=== PATIENT | male | born 1990 | race Caucasian/White ===

== ENCOUNTER 2020-02-09 13:33 | Emergency (ER) | payer SELFPAY ==
--- NOTE | ~2020-02-09 | XR_ITS ---
EXAMINATION: XR chest 2V DATE: 02/09/2020 14:17 INDICATION: Chest pain and tachycardia TECHNIQUE: AP and lateral views of the chest are obtained. COMPARISON: 02/27/2010 FINDINGS: The lungs are free of acute opacities. There is no pleural effusion or pneumothorax. The ca rdiomediastinal silhouette is normal. The visualized bones and soft tissues are unremarkable. IMPRESSION: 1. No acute cardiopulmonary abnormality. Reviewed, dictated and finalized at location B.
[2020-02-09 13:50] VITALS: BP 142/85; PULSE 117; RESP 18; TEMP 36.6; O2SAT 100
--- NOTE | 2020-02-09 13:50 | ECG_ITS ---
Measurements Intervals [place] Rate: 116 P: 77 [place]: 135 QRS: 63 QRSD: 116 T: 56 QT: 298 QTc: 414 Interpretive Statements SINUS TACHYCARDIA INCOMPLETE RIGHT BUNDLE BRANCH BLOCK ABNORMAL ECG Electronically Signed On 02-09-2020 14:48:49 CDT by Eligio Alfaro D.O.
[2020-02-09 14:03] LABS: Basophils Absolute Auto 0.1 K/mm3 (0.0-0.1); Basophils Percent Auto 0.6 % (0.2-1.2); Eosinophils Absolute Auto 0.1 K/mm3 (0-0.3); Eosinophils Percent Auto 0.7 % (0-4.4); Hematocrit 46.7 % (42.0-52.0); Hemoglobin 15.6 g/dL (14.0-18.0); Immature Granulocyte Absolute 0.03 K/mm3 (0.00-0.031); Immature Granulocyte Percent A 0.2 % (0-0.5); Lymphocytes Absolute Auto 0.84 K/mm3 (0.9-3.2); Lymphocytes Percent Auto 6.7 % (18.3-44.2); Mean Corpuscular HGB Conc 33.4 g/dl (32-36); Mean Corpuscular Hemoglobin 30.2 pg (26-34); Mean Corpuscular Volume 90.3 fl (80-100); Mean Platelet Volume 10.3 fl (7.4-10.4); Monocytes Absolute Auto 0.8 K/mm3 (0.1-0.6); Neutrophils Absolute Auto 10.7 K/mm3 (1.3-6.7); Neutrophils Percent Auto 85.8 % (45.5-73.1); Platelet Count Result 274 k/mm3 (150-375); Red Blood Count 5.17 M/mm3 (4.6-6.20); Red Cell Distribution Width 13.1 % (11.5-14.5); White Blood Count 12.5 K/mm3 (4.5-10.0)
[2020-02-09 14:14] LABS: INR 1.1; Prothrombin Time 13.4 Seconds (11.1-14.7)
[2020-02-09 14:15] LABS: Blood Urea Nitrogen 21 mg/dL (9-20); Calcium 9.4 mg/dL (8.4-10.2); Carbon Dioxide 29 mmol/L (22-30); Chloride 94 mmol/L (98-107); Estimated Glomerular Filt Rate > 60; Glucose 107 mg/dL (75-110); Partial Thromboplastin Time 28.6 SECONDS (22.3-36.8); Sodium 131 mmol/L (137-145)
[2020-02-09 14:27] LABS: Troponin I < 0.012 ng/mL (0.000-0.034)
--- NOTE | 2020-02-09 14:55 | ED.CHESTPAIN ---
HPI - Chest Pain General Chief Complaint: Chest Pain Stated Complaint: diarrhea Time Seen by Provider: 02/09/20 14:47 Source: patient Mode of arrival: ambulatory Limitations: no limitations History of Present Illness HPI narrative: The pt is a 29 y/o male who presents to the ED c/o intermittent right-sided CP onset last night. Pt describes it as a burning pain that was triggered while he was laying down on his stomach, but has not worsened his pain via coughing. He notes that the pain radiates to the back and left-side of his chest. He states that his daughters and girlfriend have been sick with similar symptoms recently, but are fine today. He states that he began to experience nausea with one episode of vomiting last night, and then the CP began. He reports SOB when the CP begins, 3-4 episodes of diarrhea, fatigue, and resolved diaphoresis. He denies ABD pain, cough, sore throat, congestion, and rhinorrhea. Pt states that he smokes 1 PPD, and has no PCP currently. MD complaint: chest pain Timing of current episode: episodic Onset: other (Laying on stomach) Pain location: right chest Pain radiation: back and other (Left chest) Exacerbating factors: nothing Associated symptoms: nausea, vomiting, diaphoresis (Resolved), dyspnea (With the CP) and other (Diarrhea (3-4 episodes), fatigue) Related Data Home Medications Medication Instructions Recorded Confirmed No Home Medications 12/01/19 12/01/19 Allergies Allergy/AdvReac Type Severity Reaction Status Date / Time No Known Drug Allergies Allergy Mild Unknown Verified 02/09/20 15:06 Review of Systems Review of Systems: All systems reviewed & are unremarkable except as noted in HPI and below Constitutional: Constitutional: Reports excessive sweating (Resolved) and Reports fatigue ENT: Denies nasal congestion, Denies sore throat and Denies other (Rhinorrhea) Cardiovascular: Cardiovascular: Reports chest pain (Intermittent, right chest radiating to left chest and back, burning) Respiratory: Respiratory: Denies cough and Reports dyspnea (Only with CP) Gastrointestinal: Gastrointestinal: Denies abdominal pain, Reports diarrhea (3-4 episodes), Reports nausea and Reports vomiting PMFSH Past Medical History Medical History (Updated 02/09/20 @ 16:25 by Eev Dixon MD) Cyst Eye Surgical History Surgical History (Updated 12/01/19 @ 13:50 by Harvey Millard) H/O eye surgery Cyst removed Social History Social History (Updated 02/09/20 @ 14:58 by Harvey Millard) Smoking packs per day: 1 Smoking cigarettes per day: 20.0 Smoking status: Current every day smoker Tobacco type: cigarettes Alcohol intake: current Substance use: current Substance use type: marijuana Gender identity (if verbalized by the patient): Male Exam Const: General: cooperative, no acute distress and alert Nutritional Appearance: well nourished Orientation/consciousness: patient oriented x3 Limitations: no limitations HENMT: Mouth: Yes lip normal and Yes moist mucous membranes Resp: Effort & Inspection: normal respiratory effort Auscultation: clear to auscultation bilaterally Cardio: Rate: tachycardic Rhythm: regular rhythm GI: GI Palp: Yes Soft to palpation and No Tenderness to palpation present (GI) Auscultation: normal bowel sounds Skin: General skin exam: normal color Neuro: General: patient oriented x3 Cognition (Neuro): normal cognition Speech: normal speech Extrem: General: normal to inspection, full ROM and no clubbing, cyanosis or edema Psych: Mental Status: mental status grossly normal Affect: normal affect Attitude: cooperative Course Course Emergency Course: Patient feeling better after GI cocktail. Testing unremarkable. Patient entire family ill with same viral symptoms. Suspect acid reflux causing chest discomfort versus inflammation from his viral infection. D-dimer negative and patient is low risk for pulmonary embolism. No marc
[2020-02-09 14:57] VITALS: BP 129/82; PULSE 116; RESP 19; TEMP 37.2; O2SAT 99
--- NOTE | 2020-02-09 15:07 | PC.NURSE ---
ATTEMPTED TO START IV ON PATIENT PER PROTOCOL. PT REFUSED WOULD NOT ALLOW US TO START IV. MADE AWARE
[2020-02-09] MEDS: ASPIRIN 81 MG CHEWABLE TABLET 324 MG PO (15:13)
[2020-02-09 15:19] LABS: Alanine Aminotransferase 14 U/L (4-50); Albumin Level 4.4 g/dL (3.5-5.1); Alkaline Phosphatase 61 U/L (38-126); Aspartate Amino Transferase 36 U/L (17-59); Bilirubin,Total 0.5 mg/dL (0.2-1.3); Lipase 30 U/L (23-300)
[2020-02-09 15:34] LABS: D Dimer 0.38 ug/mL (<0.48)
[2020-02-09 16:31] VITALS: BP 138/87; PULSE 100; RESP 16; O2SAT 99
== END 2020-02-09 16:32 | disposition home or self-care (01) ==
PROVIDERS: Emergency Medicine; Emergency Provider Emergency Medicine; Referring Provider Emergency Medicine
DX: B34.9 Viral infection, unspecified (principal); R07.9 Chest pain, unspecified; F17.210 Nicotine dependence, cigarettes, uncomplicated; R00.0 Tachycardia, unspecified; I45.10 Unspecified right bundle-branch block
CPT/HCPCS: 36415; 71046; 80048; 80076; 83690; 84484; 85025; 85380; 85610; 85730; 93005; 99284; A9270

== ENCOUNTER 2020-07-31 20:59 | Emergency (ER) | payer MEDICAID, SELFPAY ==
[2020-07-31 21:01] VITALS: BP 149/88; PULSE 109; RESP 16; TEMP 36.2; O2SAT 100
--- NOTE | 2020-07-31 21:31 | ED.GENADULT ---
HPI - General Adult General Chief complaint: Upper Respiratory Infection Stated complaint: sore throat Time Seen by Provider: 07/31/20 21:06 History of Present Illness HPI narrative: Patient is a 29-year-old male who presents ER with sore throat for the last couple days. Pain with swallowing. Mild headache. No fevers or chills. No known sick contacts. No coughing. There are no dyspnea. Related Data Allergies Allergy/AdvReac Type Severity Reaction Status Date / Time No Known Drug Allergies Allergy Mild Unknown Verified 02/09/20 15:06 Review of Systems Constitutional: Constitutional: Denies chills, Denies fever(s) and Denies weakness ENT: Denies nasal congestion and Reports sore throat Cardiovascular: Cardiovascular: Denies chest pain Respiratory: Respiratory: Denies cough and Denies dyspnea PMFSH Past Medical History Medical History (Updated 07/31/20 @ 21:34 by Rafiq Toth MD) Cyst Eye Surgical History Surgical History (Updated 12/01/19 @ 13:50 by Harvey Millard) H/O eye surgery Cyst removed Social History Social History (Updated 02/09/20 @ 14:58 by Harvey Millard) Smoking packs per day: 1 Smoking cigarettes per day: 20.0 Smoking status: Current every day smoker Tobacco type: cigarettes Alcohol intake: current Substance use: current Substance use type: marijuana Gender identity (if verbalized by the patient): Male Exam Narrative: Exam Narrative: GENERAL: Well-appearing, well-nourished, and in no acute distress. HEAD: Normocephalic, atraumatic. ENT: Mucous membranes moist. Posterior oropharynx erythematous with 2+ tonsils. Uvula nonedematous midline. No uvular shift. Mild exudates of tonsils. NEURO: Alert and oriented x3. PSYCH: Normal mood and affect. Course Course Emergency Course: No respiratory distress. Tolerating oral secretions. Educated on treatment of strep throat. Vital Signs Vital signs: Vital Signs Temperature 97.2 F L 07/31/20 21:01 Pulse Rate 109 H 07/31/20 21:01 Respiratory Rate 16 07/31/20 21:01 Blood Pressure 149/88 H 07/31/20 21:01 Pulse Oximetry 100 07/31/20 21:01 Temperature 97.2 F L 07/31/20 21:01 Pulse Rate 109 H 07/31/20 21:01 Respiratory Rate 16 07/31/20 21:01 Blood Pressure 149/88 H 07/31/20 21:01 Pulse Oximetry 100 07/31/20 21:01 Medical Decision Making Vital Signs Vital Signs: Vital Signs Temperature 97.2 F L 07/31/20 21:01 Pulse Rate 109 H 07/31/20 21:01 Respiratory Rate 16 07/31/20 21:01 Blood Pressure 149/88 H 07/31/20 21:01 Pulse Oximetry 100 07/31/20 21:01 Temperature 97.2 F L 07/31/20 21:01 Pulse Rate 109 H 07/31/20 21:01 Respiratory Rate 16 07/31/20 21:01 Blood Pressure 149/88 H 07/31/20 21:01 Pulse Oximetry 100 07/31/20 21:01 Discharge Plan Discharge Clinical Impression: Strep throat Patient Disposition: Home, Self-Care Condition: Stable Instructions: Strep Throat (ED) Additional Instructions: Return to the ER if you have chest pain or shortness of breath, cannot keep down food or water, you have inability to swallow, or you have other concerns. Prescriptions: New amoxicillin-pot clavulanate [Augmentin] 875-125 mg tablet 1 tablet PO Q12H Qty: 20 RF: 0 hydrocodone-acetaminophen [Pound] 5-325 mg tablet 1 tablet PO Q6H PRN (Reason: pain) Qty: 20 RF: 0 Follow-up/Referrals: Chapito Barr MD [Physician] - 1 Week PHYSICIAN,CLINICAL EDUCATION MANAGER [Primary Care Provider] -
== END 2020-07-31 21:46 | disposition home or self-care (01) ==
PROVIDERS: Emergency Provider Emergency Medicine
DX: J02.0 Streptococcal pharyngitis (principal)
CPT/HCPCS: 87880; 99283

== ENCOUNTER 2022-02-20 03:53 | Emergency (ER) | payer OTHER, SELFPAY ==
--- NOTE | ~2022-02-20 | XR_ITS ---
EXAMINATION: XR chest 1V portable DATE: 02/20/2022 04:27 INDICATION: Shortness of breath. TECHNIQUE: A single frontal view of the chest was obtained. COMPARISON: Chest 2 views 02/09/2020 FINDINGS: The chest demonstrates clear lungs without pneumonia, pleural effusion, or pneumothorax. Th e heart size is normal. IMPRESSION: 1. No acute cardiopulmonary disease. Reviewed, dictated and finalized at location A.
[2022-02-20 03:56] VITALS: BP 129/77; PULSE 116; RESP 19; TEMP 36.1; O2SAT 90
--- NOTE | 2022-02-20 04:06 | ED.GENADULT ---
HPI - General Adult General Chief complaint: Shortness of Breath/Dyspnea Stated complaint: diff breathing Time Seen by Provider: 02/20/22 03:54 Source: patient Limitations: no limitations History of Present Illness HPI narrative: 31-year-old male presented [facility] for evaluation of shortness of breath. Patient states that he is a smoker and he did start a new job where he has been smoking a lot more. Patient states over the past few days has had increased shortness of breath. Patient does state he has some intermittent chest pain. Patient declined labs and an IV. Related Data Home Medications Medication Instructions Recorded Confirmed No Home Medications 02/20/22 02/20/22 Allergies Allergy/AdvReac Type Severity Reaction Status Date / Time No Known Drug Allergies Allergy Mild Unknown Verified 02/20/22 03:58 Review of Systems Review of Systems: CONSTITUTIONAL: Denies fever, chills, or sweats. EYES: Denies visual changes, redness, or discharge. ENT: Denies rhinorrhea, congestion, sore throat, or otalgia. CARDIOVASCULAR: CP RESPIRATORY: SOB GASTROINTESTINAL: Denies abdominal pain, nausea, vomiting, or diarrhea. GENITOURINARY: Denies dysuria or hematuria. SKIN: Denies rash or itching. MUSCULOSKELETAL: Denies back pain, joint pain, or myalgia. NEUROLOGIC: Denies headache, numbness, or weakness. [facility] Past Medical History Medical History (Updated 02/20/22 @ 05:23 by Cordell Demarco MD) Cyst Eye Surgical History Surgical History (Updated 12/01/19 @ 13:50 by Harvey Millard) H/O eye surgery Cyst removed Social History Social History (Updated 02/09/20 @ 14:58 by Harvey Millard) Smoking packs per day: 1 Smoking cigarettes per day: 20.0 Smoking status: Current every day smoker Tobacco type: cigarettes Alcohol intake: current Alcohol use details: Occasionally. Substance use: current Substance use type: marijuana Gender identity (if verbalized by the patient): Male Exam Narrative: APPEARANCE: Well appearing, no pain, no distress, well-nourished. HEAD: normocephalic, atraumatic. EYES: PERRLA/EOMI, conjunctivae clear. NOSE: Normal no drainage EARS:TMS clear with good light reflex. THROAT: Pharynx clear, no exudate. NECK: Supple. No adenopathy, no masses. RESPIRATORY: Bilateral wheeze CARDIOVASCULAR: Regular rate and rhythm without murmurs rubs or gallops. ABDOMINAL: Soft, nontender, nondistended, normal bowel sounds MUSCULOSKELETAL: Moves all extremities. Strength/ROM intact, No edema, No calf tenderness. Course Course Emergency Course: Patient was treated with 5 mg of nebulized albuterol and then patient eloped Vital Signs Vital signs: Vital Signs Temperature 97.0 F L 02/20/22 03:56 Pulse Rate 116 H 02/20/22 03:56 Respiratory Rate 19 02/20/22 03:56 Blood Pressure 129/77 02/20/22 03:56 Pulse Oximetry 90 02/20/22 03:56 Temperature 97.0 F L 02/20/22 03:56 Pulse Rate 101 H 02/20/22 04:22 Respiratory Rate 18 02/20/22 04:22 Blood Pressure 129/77 02/20/22 03:56 Pulse Oximetry 94 02/20/22 04:21 Medical Decision Making Vital Signs Vital Signs: Vital Signs Temperature 97.0 F L 02/20/22 03:56 Pulse Rate 116 H 02/20/22 03:56 Respiratory Rate 19 02/20/22 03:56 Blood Pressure 129/77 02/20/22 03:56 Pulse Oximetry 90 02/20/22 03:56 Temperature 97.0 F L 02/20/22 03:56 Pulse Rate 101 H 02/20/22 04:22 Respiratory Rate 18 02/20/22 04:22 Blood Pressure 129/77 02/20/22 03:56 Pulse Oximetry 94 02/20/22 04:21 Lab Data Labs: Lab Results 02/20/22 Range/Units 04:13 Influenza A (RT-PCR) Negative (Negative) Influenza B (RT-PCR) Negative (Negative) SARS-CoV-2 RNA (RT-PCR) Negative Discharge Plan Discharge Clinical Impression: Dyspnea Qualifiers: Dyspnea type: shortness of breath Qualified Code(s): R06.02 - Shortness of breath Patient Disposition: [facility] After Seen by Breana
[2022-02-20 04:14] VITALS: PULSE 97; RESP 22
[2022-02-20] MEDS: ALBUTEROL SULFATE NEB 2.5 MG/0.5 ML INH 5 MG INHALATION (04:14)
[2022-02-20 04:18] VITALS: PULSE 112; O2SAT 94
[2022-02-20 04:21] VITALS: O2SAT 94
[2022-02-20 04:22] VITALS: PULSE 101; RESP 18
[2022-02-20 04:57] LABS: Influenza A QL RT-PCR Negative (Negative); Influenza B QL RT-PCR Negative (Negative); SARS-CoV-2 RNA PCR Negative
== END 2022-02-20 05:20 | disposition left against medical advice (07) ==
PROVIDERS: Emergency Provider Emergency Medicine
DX: R06.02 Shortness of breath (principal); F17.210 Nicotine dependence, cigarettes, uncomplicated; Z20.822 Contact with and (suspected) exposure to COVID-19
CPT/HCPCS: 71045; 87502; 94640; 99283; C9803; U0003; U0005